=== PATIENT | male | born 1975 | race Caucasian/White ===

== ENCOUNTER 2017-01-08 07:50 | Observation (INO) | payer OTHER ==
[~2017-01-08] VITALS: Ht 180.3 cm; Wt 96.4 kg
[~2017-01-08 07:50] MED LIST: DIAZ5 PO; MELO-1 PO; OXYC1CAP PO
[2017-01-08 08:00] VITALS: BP 122/78; PULSE 68; RESP 18; TEMP 97; O2SAT 98
[2017-01-08] MEDS ORDERED: ACETAMINOPHEN 325 MG TAB PO PRN (08:15)
[2017-01-08] MEDS ORDERED: SODIUM CHLORIDE 0.9% FLUSH 10 ML FLUSH IV FLUSH PRN (08:15)
[2017-01-08] MEDS ORDERED: ZOLPIDEM TARTRATE 5 MG TAB PO PRN (08:15)
[2017-01-08] MEDS ORDERED: ONDANSETRON HCL 4 MG/2 ML VIAL IVP PRN (08:15)
[2017-01-08] MEDS ORDERED: DIAZEPAM 5 MG TAB PO PRN (08:15)
[2017-01-08] MEDS ORDERED: NALOXONE HCL 0.4 MG/ML AMP IV PRN (08:15)
[2017-01-08] MEDS: oxyCODONE/ACETAMINOPHEN 7.5 MG/325 MG TAB PO PRN ×3 (09:31→23:25)
[2017-01-08] MEDS: SODIUM CHLORIDE 0.9% FLUSH 10 ML FLUSH IV FLUSH SCH ×2 (09:34→20:15)
[2017-01-08 12:00] VITALS: BP 121/72; PULSE 76; RESP 18; TEMP 96.8; O2SAT 99
[2017-01-08] MEDS ORDERED: DOCUSATE SODIUM 100 MG CAP PO PRN (13:15)
[2017-01-08] MEDS ORDERED: PILL SPLITTER OTHER PRN (13:30)
[2017-01-08 13:59] LABS: CHLORIDE 108 MEQ/L (98-107); POTASSIUM 3.9 MEQ/L (3.5-5.1); SODIUM (NA) 141 MEQ/L (136-145)
[2017-01-08 14:03] LABS: ANION GAP 6 MEQ/L (5-15); BICARBONATE 26.6 MEQ/L (21.0-32.0); BLOOD UREA NITROGEN 15 MG/DL (7-18)
[2017-01-08 14:06] LABS: ALT (GPT) 50 U/L (12-78); AST (GOT) 23 U/L (15-37); GLOMERULAR FILTRATION RATE 74 ML/MIN (>89)
[2017-01-08 14:07] LABS: TOTAL BILIRUBIN ADULT 0.3 MG/DL (0.2-1.0)
[2017-01-08 14:09] LABS: ALKALINE PHOSPHATASE 85 U/L (45-117)
--- NOTE | 2017-01-08 14:24 | MH ---
cc: MUNA LANGSTON DATE OF ADMISSION: 01/08/2017 ADMITTING DIAGNOSIS: Intractable back pain. HISTORY OF PRESENT ILLNESS: Mr. Ball is a 41-year-old gentleman who is a patient of who has a history of chronic low back pain and is actually scheduled to have surgery at the end of this month by Dr. Quispe. He states he has chronic low back pain radiating to his right lower extremity with burning and tingling. He has been followed by pain management, has had epidurals and it sounds like maybe rhizotomies as well as treatment with p.o. narcotics. In October of this year, he had an MRI with showed broad-based disc bulge at L4 and L5 indenting the thecal sac with ligamentum flavum hypertrophy and mild central right stenosis. Given that he has not been responding to treatment, Dr. Quispe evaluated him and has agreed to take him to the operating room. The patient states he lives with chronic pain at a level of approximately 5 to 6 on a good day. Unfortunately on Monday to Monday morning, he was going down the stairs with a quilt in his hand. He said he slipped and he fell down four stairs in a sitting position. His pain became exacerbated at that time. He spent most of Monday taking his pain medications and icing the area however the pain became unbearable. He had trouble ambulating so he presented to the [place] [facility]. Dr. Quispe had told him to try to get to the [facility] if he had problems with his back and if his back pain got worse but he felt that with the amount of pain he had he was not able to drive that far. In the [place] emergency room he was seen by who tried various pain medications with him. He was given IM Dilaudid, Valium p.o. He actually had two doses of IM Dilaudid, two doses of Valium 5 milligrams, 600 milligrams of Motrin p.o., Tramadol 50 milligrams p.o. as well as Prednisone 60 milligrams p.o. The patient after being in the emergency room approximately 8 to 9 hours was not responding to any of these pain medications so it was decided to transfer him to [place] [facility] for further pain control and imaging. The patient at the time that I see him in his room states that his pain is now perhaps at an 8 or a 9. He states that essentially his pain pattern is not new, it is just much more intense than he had in the past. His goal at this point is to get his pain under somewhat better control and follow up with Dr. Quispe. PAST MEDICAL HISTORY: His past medical history is significant for: 1. Sleep apnea. 2. He has ADD. 3. He has chronic low back pain, as stated. 4. He has depression with anxiety. PAST SURGICAL HISTORY: His surgical history includes: 1. Carpal tunnel release. 2. Appendectomy. 3. Cholecystectomy. ALLERGIES: HE DENIES ANY ALLERGIES TO ANY MEDICATIONS BUT HE DOES SAY THAT [facility] DID GIVE HIM DIARRHEA AND HE THINKS THE MELOXICAM HE HAD BEEN PRESCRIBED SOMETIMES GIVES HIM A RUNNY NOSE. MEDICATIONS: Medications through pain management include: 1. Oxycodone 5 / 325 three times a day as needed. 2. Meloxicam 15 milligrams once a day. He states that he has not been taking the Meloxicam for the last week or so. 3. Valium 5 milligrams two to three times a day. 4. Lexapro 15 milligrams daily. HABITS: He states he smoked until he had his carpal tunnel surgery. He does not consume any alcohol. 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 He is . He has three children. He lives in [place]. He relocated from [place] 13 years ago. REVIEW OF SYSTEMS: He denies any chest pain or shortness of breath. He denies any abdominal pain. He does say he occasionally gets some diarrhea but no real constipation. No difficulty urinating. No black or tarry stools. PHYSICAL EXAMINATION: VITAL SIGNS: On physical exam temperature is 96, a pulse of 70, six, respirations 18, blood pressure is 121/72 pulse ox is 99%. GENERAL: He is lying flat on the hospital bed. He is alert and oriented and is very calm and measured in his speech. HEAD, EYES, EARS, NOSE, THROAT: He is normocephalic and traumatic. Extraocular muscles intact. He has a moist oral mucosa. NECK: His neck is supple. LUNGS: His lungs were clear to auscultation. HEART: His heart is regular rate and rhythm. He is not tachycardiac. ABDOMEN: Abdomen has good bowel sounds in all four quadrants. No rebound or guarding. EXTREMITIES: Show no clubbing, cyanosis or edema. He is able to raise his right leg to approximately 30 degrees before he starts having a discomfort. Muscle strength is 5/5 proximal and distal. BACK: He is tender along the lower spine, more in the right paravertebral area. He describes an aching sensation in that area, a deep ache as well as into his right buttock. He describes a burning sensation along his thigh and down his legs. ASSESSMENT AND PLAN: This is a 41-year-old male with known history of bulging disc at L4 and L5 with chronic pain scheduled for surgery at the end of this month with exacerbation after a traumatic fall at home. 1. At this point he has been admitted to [facility] for pain control. 2. Will increase the dosing of the strength and frequency of his oxycodone. 3. I am also going to try some Toradol for initial pain relief and see how that does. 4. I will order a CMP on him as we do not have any baseline liver or renal function tests from his prior emergency room visit. 5. For his anxiety and depression, we will continue him on his Lexapro and his Valium. The Valium might also help to relax his muscles a little bit. 6. He did tell me that he did have some diarrhea with Robaxin as well. Hopefully will be able to get his pain syndrome under control such that he will be able to be discharged within the next 24 hours to follow up with his neurosurgeon. Further recommendations as case develops. MD SHANNAN Sheth/LINO /1:41 PM /2:10 PM
[2017-01-08 16:00] VITALS: BP 135/66; PULSE 67; RESP 18; TEMP 97.1; O2SAT 96
[2017-01-08] MEDS: KETOROLAC TROMETHAMINE 30 MG/ML (IVP) VIAL IV PUSH SCH ×2 (16:50→20:15)
[2017-01-08 20:00] VITALS: BP 136/83; PULSE 69; RESP 20; TEMP 96.9; O2SAT 94
[2017-01-08] MEDS: SODIUM CHLOR 0.9% 1000 ML INJ 1,000 ML IV SCH (23:36)
[2017-01-09] VITALS: BP 123/80; PULSE 59; RESP 20; TEMP 96; O2SAT 96
[2017-01-09] MEDS: KETOROLAC TROMETHAMINE 30 MG/ML (IVP) VIAL IV PUSH SCH ×3 (03:20→13:29)
[2017-01-09] MEDS: oxyCODONE/ACETAMINOPHEN 7.5 MG/325 MG TAB PO PRN ×3 (03:21→11:23)
[2017-01-09 06:48] LABS: AUTOMATED NEUTROPHIL # 6.3 TH/MM3 (1.8-7.7); BASOPHIL # 0.2 TH/MM3 (0-0.2); BASOPHIL % 1.8 % (0.0-2.0); EOSINOPHIL # 0.2 TH/MM3 (0-0.4); EOSINOPHIL % 1.4 % (0.0-4.0); HEMATOCRIT 38.6 % (39.0-51.0); HEMO FLAGS DIFF FINAL; LYMPH % 31.4 % (9.0-44.0); LYMPHOCYTE # 3.5 TH/MM3 (1.0-4.8); MEAN CELL VOLUME 85.8 FL (80.0-100.0); MEAN CORPUSCULAR HEMOGLOBIN 29.3 PG (27.0-34.0); MEAN CORPUSCULAR HGB CONC 34.1 % (32.0-36.0); MONO % 8.4 % (0.0-8.0); PLATELET COUNT 276 TH/MM3 (150-450); RED CELL DISTRIBUTION WIDTH 12.8 % (11.6-17.2); WHITE BLOOD COUNT 11.1 TH/MM3 (4.0-11.0)
[2017-01-09 07:02] LABS: POTASSIUM 3.8 MEQ/L (3.5-5.1)
[2017-01-09 07:09] LABS: BICARBONATE 28.5 MEQ/L (21.0-32.0)
[2017-01-09 08:00] VITALS: BP 115/71; PULSE 54; RESP 17; TEMP 97.3; O2SAT 97
[2017-01-09] MEDS: SODIUM CHLORIDE 0.9% FLUSH 10 ML FLUSH IV FLUSH SCH (08:43)
[2017-01-09] MEDS ORDERED: DIAZEPAM 5 MG TAB PO SCH (09:00)
[2017-01-09] MEDS ORDERED: ESCITALOPRAM OXALATE 10 MG TAB PO SCH (09:00)
[2017-01-09] MEDS ORDERED: DIAZEPAM 5 MG TAB PO PRN ×2 (09:00→09:45)
[2017-01-09] MEDS: SODIUM CHLOR 0.9% 1000 ML INJ 1,000 ML IV SCH (09:52)
--- NOTE | 2017-01-09 11:45 | RADRPT ---
EXAM DATE/TIME: 01/09/2017 11:01 [facility] COMPARISON: No previous studies available for comparison. INDICATIONS : Radiculopathy. MEDICAL HISTORY : Hypercholesterolemia. SURGICAL HISTORY : Appendectomy. Carpal tunnel syndrome. Colon resection. Sinus sx. ENCOUNTER: Initial ACUITY: 3 day PAIN SCORE: 9/10 LOCATION: Right lower back region. TECHNIQUE: Multiplanar multisequence MRI of the lumbar spine was performed without contrast. FINDINGS: Incidental dual IVC. The most caudal appearing lumbar vertebra is numbered as L5. VERTEBRAE: Homogeneous signal. Normal alignment. CONUS: Normal level and configuration. T12-L1: The thecal sac has a normal diameter. No evidence of disc bulge or protrusion. The neural foramina are patent bilaterally. L1-L2: The thecal sac has a normal diameter. No evidence of disc bulge or protrusion. The neural foramina are patent bilaterally. L2-L3: The thecal sac has a normal diameter. No evidence of disc bulge or protrusion. The neural foramina are patent bilaterally. L3-L4: The thecal sac has a normal diameter. No evidence of disc bulge or protrusion. The neural foramina are patent bilaterally. L4-L5: Mild disc dehydration. Annular disc bulge with mild broad superimposed dorsal disc protrusion. 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 There is a moderate degree of canal stenosis with canal diameter reduced to just under a centimeter. L5-S1: The thecal sac has a normal diameter. No evidence of disc bulge or protrusion. The neural foramina are patent bilaterally. CONCLUSION: Broad disc protrusion contributing to moderate canal stenosis at L4-5. Al Nicole MD on January 09, 2017 at 11:40 Board Certified Radiologist. This report was verified electronically.
[2017-01-09 12:00] VITALS: BP 123/67; PULSE 66; RESP 17; TEMP 97.6; O2SAT 95
--- NOTE | 2017-01-09 12:31 | HHI.PR ---
Subjective Remarks Pain was getting better control but worsened lying for MRI. Ambulating to bathroom. Seen by PT and able to move, walker for increased stability Pre-op is with Dr Quispe on Objective Vitals Vital Signs Date Time Temp Pulse Resp B/P Pulse Ox O2 Delivery O2 Flow Rate FiO2 01/09/17 12:00 97.6 66 17 123/67 95 01/09/17 09:50 16 01/09/17 08:48 16 01/09/17 08:00 97.3 54 17 115/71 97 01/09/17 00:00 96.0 59 20 123/80 96 01/08/17 20:00 96.9 69 20 136/83 94 01/08/17 16:00 97.1 67 18 135/66 96 01/08/17 01/08/17 01/09/17 15:00 23:00 07:00 Intake Total 650 ml 1215 ml Balance 650 ml 1215 ml Intake Oral 650 ml 960 ml IV Total 255 ml # Voids 2 9 # Bowel Movements 0 0 Result Diagram: 01/09/17 0630 01/09/17 0630 Imaging Last Impressions Lumbar Spine MRI 01/09/17 0000 Signed Impressions: Service Date/Time: Monday, January 09, 2017 11:01 - CONCLUSION: Broad disc protrusion contributing to moderate canal stenosis at L4-5. Al Nicole MD Objective Remarks Lying flat in bed, calm cta rrr +bs moving all extremities A/P Problem List: (1) Acute low back pain Status: Acute Plan: Acute on chronic back pain after fall. Admitted for pain control. He states his pain was at a 6-7 on a "good day" prior to fall and admission. MRI showed nothing acute. He has achieved somewhat better pain control with increase in dose of oxycodone. He is agreeable to disharge and he will call Dr Quispe office as well as his pain management physician, he has appts with both on . Discussed medications he was given in [place] [facility] [place] for pain control so he could let his pain management team and surgeon know should they take him to the [facility]. Discharge Planning discharge home today Problem Qualifiers (1) Acute low back pain: Maxine Link MD Jan 09, 2017 12:31
[2017-01-09 12:46] VITALS: RESP 16
[2017-01-09] MEDS ORDERED: OXYC1TAB36 PO (12:48)
[2017-01-09] MEDS ORDERED: ESCI10TA PO (12:48)
[2017-01-09] MEDS ORDERED: WALKER WHEELS/F1 MIS (12:54)
== END 2017-01-09 14:07 | disposition home or self-care (01) ==
LOC: PHEDDLT 07:50 → PH3A 08:02
PROVIDERS: ADMIT Legal Medicine; ATTEND Legal Medicine
DX: M54.5 Low back pain (principal); M51.26 Other intervertebral disc displacement, lumbar region; M48.06 Spinal stenosis, lumbar region; G89.29 Other chronic pain; E78.00 Pure hypercholesterolemia, unspecified; G47.30 Sleep apnea, unspecified; F32.9 Major depressive disorder, single episode, unspecified; F41.9 Anxiety disorder, unspecified; Z79.899 Other long term (current) drug therapy; Z87.891 Personal history of nicotine dependence; W10.9XXA Fall (on) (from) unspecified stairs and steps, initial encounter
CPT/HCPCS: 72148; 80048; 80053; 85025; 97162; G0378; G8987; G8988; J1885; J7030